=== PATIENT | female | born 1970 | race Caucasian/White ===

== ENCOUNTER 2020-10-25 14:09 | Emergency (ER) | payer BC, SELFPAY ==
--- NOTE | ~2020-10-25 | XR_ITS ---
EXAMINATION: XR forearm LT 2V EXAM DATE: 10/25/2020 15:03 INDICATION: Fall, left forearm pain. TECHNIQUE: Left forearm frontal and lateral projections obtained and reviewed. There is no prior bel dy for comparison. FINDINGS: Ulnar minus variance, a congenital variant. There are no acute fractures or dislocations i dentified. There is no subcutaneous gas. There is soft tissue swelling over the mid forearm.. Ther e are no radiopaque foreign bodies. IMPRESSION: 1. Left forearm exam without acute osseous findings. 2. Ulnar minus variance. 3. Soft tissue swelling. Reviewed, dictated and finalized at location B. ICULTURIST
[2020-10-25 14:17] VITALS: BP 113/87; PULSE 106; RESP 18; TEMP 36.5; O2SAT 100
--- NOTE | 2020-10-25 15:43 | ED.GENADULT ---
HPI - General Adult General Chief complaint: Extremity Injury, Upper Stated complaint: left arm injury Time Seen by Provider: 10/25/20 14:17 Source: patient Mode of arrival: ambulatory Limitations: no limitations History of Present Illness HPI narrative: Patient presents with chief complaint of bruising swelling and discomfort to the left forearm. Patient states that approximately 1:30 PM she fell and attempted to use the left arm to brace her fall. Patient reports bruising and swelling to the forearm and discomfort. Patient denies any other injuries or concerns. Patient chronic medical history includes depression. She denies any other concerns or complaints. Related Data Home Medications Medication Instructions Recorded Confirmed bupropion HCl PO 10/25/20 duloxetine mg PO 10/25/20 lamotrigine 10/25/20 quetiapine 10/25/20 Allergies Allergy/AdvReac Type Severity Reaction Status Date / Time Penicillins Allergy Mild Hives Verified 10/25/20 14:37 Review of Systems Review of Systems: Narrative: CONSTITUTIONAL: Denies fever, chills, or sweats. EYES: Denies visual changes, redness, or discharge. ENT: Denies rhinorrhea, congestion, sore throat, or otalgia. CARDIOVASCULAR: Denies chest pain, palpitations, or edema. RESPIRATORY: Denies cough or dyspnea. GASTROINTESTINAL: Denies abdominal pain, nausea, vomiting, or diarrhea. GENITOURINARY: Denies dysuria or hematuria. SKIN: Denies rash or itching. MUSCULOSKELETAL: Reports swelling, ecchymosis, left forearm pain denies back pain NEUROLOGIC: Denies headache, numbness, dizziness, or weakness. PSYCHIATRIC: Denies anxiety or depression. Exam Narrative: Exam Narrative: GENERAL: Well-appearing, well-nourished, and in no acute distress. HEAD: Normocephalic, atraumatic. EYES: PERRLA and EOMI. NECK: Supple. No adenopathy or masses. CHEST: Clear to auscultation. No respiratory distress. No wheezes rales or rhonchi HEART: Regular rate and rhythm. No murmur heard. Normal peripheral pulses. EXTREMITIES: There is an ecchymosis noted to the mid left forearm. Range of motion intact in the elbow and wrist. No tenderness of the fingers. [employer] Gl[employer] Operator strength intact. SKIN: Warm, dry, no rash. NEURO: No focal deficits. Alert and oriented x3. PSYCH: Normal mood and affect. Course Vital Signs Vital signs: Vital Signs Temperature 97.7 F 10/25/20 14:17 Pulse Rate 106 H 10/25/20 14:17 Respiratory Rate 18 10/25/20 14:17 Blood Pressure 113/87 10/25/20 14:17 Pulse Oximetry 100 10/25/20 14:17 Temperature 97.7 F 10/25/20 14:17 Pulse Rate 106 H 10/25/20 14:17 Respiratory Rate 18 10/25/20 14:17 Blood Pressure 113/87 10/25/20 14:17 Pulse Oximetry 100 10/25/20 14:17 Medical Decision Making MDM Narrative Medical decision making narrative: Discussed with patient discharge plan and care for contusion. Instructed patient to follow-up with her primary care for reevaluation if symptoms persist after 1 week. Discussed [id number] pain control. Differential Diagnosis Differential Diagnosis: Sprain, strain, fracture, contusion Vital Signs Vital Signs: Vital Signs Temperature 97.7 F 10/25/20 14:17 Pulse Rate 106 H 10/25/20 14:17 Respiratory Rate 18 10/25/20 14:17 Blood Pressure 113/87 10/25/20 14:17 Pulse Oximetry 100 10/25/20 14:17 Temperature 97.7 F 10/25/20 14:17 Pulse Rate 106 H 10/25/20 14:17 Respiratory Rate 18 10/25/20 14:17 Blood Pressure 113/87 10/25/20 14:17 Pulse Oximetry 100 10/25/20 14:17 Imaging Data Radiologist's impression: ITS Impressions Forearm X-Ray 10/25/20 15:06 IMPRESSION: 1. Left forearm exam without acute osseous findings. 2. Ulnar minus variance. 3. Soft tissue swelling. Discharge Plan Discharge Clinical Impression: Contusion of forearm, left Patient Disposition: Home, Self-Care Condition: Stable Instructions: Antibiotic Form, Contusion in Adults (E
[2020-10-25 16:19] VITALS: RESP 16
== END 2020-10-25 16:24 | disposition home or self-care (01) ==
PROVIDERS: Emergency Provider Family Medicine
DX: S50.12XA Contusion of left forearm, initial encounter (principal); W19.XXXA Unspecified fall, initial encounter
CPT/HCPCS: 73090; 99283